=== PATIENT | female | born 1950 | race Two or more races ===

== ENCOUNTER 2016-08-31 11:39 | Emergency (ER) | payer MEDICAID ==
[~2016-08-31] VITALS: Ht 162.6 cm; Wt 59.9 kg
[~2016-08-31 11:39] MED LIST: ACETAMINOPHEN-1 EAC1 ORAL; PAXIL10 MG ORAL
[2016-08-31 12:30] VITALS: BP 158/79
[2016-08-31] MEDS ORDERED: Tubing IV Cassette IV ONE (12:30)
[2016-08-31 13:14] LABS: ALANINE AMINOTRANSFERASE 16 U/L (3-33); ALBUMIN/GLOBULIN RATIO 1.5 (1.0-2.7); ANION GAP 14 (5-15); ASPARTATE AMINO TRANSFERASE 20 U/L (5-40); BASOPHILS % (AUTO) 1.2 % (0.0-2.0); CALCIUM 10.1 mg/dL (8.6-10.2); CARBON DIOXIDE 29 mEQ/L (20-30); CHLORIDE 94 mEQ/L (98-107); CREATININE 0.8 mg/dL (0.5-0.9); EOSINOPHILS % (AUTO) 0.2 % (0.0-3.0); GLOMERULAR FILTRATION RATE > 60 mL/min (>60); HEMOLYSIS 5; LIPASE 16 U/L (< 60); LYMPHOCYTES % (AUTO) 16.8 % (20.0-45.0); MEAN CORPUSCULAR HEMOGLOBIN 33.3 PG (27.0-31.0); MEAN CORPUSCULAR HGB CONC 35.6 G/DL (32.0-36.0); MEAN CORPUSCULAR VOLUME 93 FL (80-99); MONOCYTES % (AUTO) 7.9 % (1.0-10.0); NEUTROPHILS % (AUTO) 73.9 % (45.0-75.0); PLATELET COUNT 230 K/UL (150-450); POTASSIUM 3.8 mEQ/L (3.4-4.9); RED BLOOD COUNT 3.73 M/UL (4.20-5.40); RED CELL DISTRIBUTION WIDTH 11.5 % (11.6-14.8); SODIUM 137 mEQ/L (135-145); TOTAL PROTEIN 7.4 g/dL (6.6-8.7); WHITE BLOOD COUNT 5.2 K/UL (4.8-10.8)
[2016-08-31 13:33] LABS: CKMB < 1.5 ng/mL (< 3.8)
[2016-08-31 14:00] VITALS: BP 149/79
--- NOTE | 2016-08-31 14:33 | Emergency Room Report ---
History of Present Illness General Chief Complaint: Dizziness Source: Patient Present Illness HPI Patient present with complaints of lightheadedness dizziness Patient is on chemotherapy and receiving radiation For breast cancer Her left breast was removed several years ago the right breast was removed last year After receiving radiation throughout the week this week Patient had complained of symptoms of lightheadedness and dizziness Patient also had complains of tingling and numbness in both of her hands after being seen by her Hemoccult just and primary physician was sent to the ER for further eval At this time patient had some increased nausea denies any vomiting or fevers Denies any focal weakness Allergies: Coded Allergies: No Known Allergies (Unverified , 05/05/15) Patient History Past Medical History: see triage record Pertinent Family History: none Reviewed Nursing Documentation: PMH: Agreed, PSxH: Agreed Nursing Documentation-PMH Past Medical History: No History, Except For Hx Hypertension: Yes Hx Cancer: Yes - bilateral CA and mastectomy with lymph nodes removal Review of Systems All Other Systems: negative except mentioned in HPI Physical Exam Vital Signs Date Time Temp Pulse Resp B/P Pulse Ox O2 Delivery O2 Flow Rate FiO2 08/31/16 11:45 98.8 81 14 157/90 98 Room Air Sp02 EP Interpretation: reviewed, normal General Appearance: no apparent distress Head: normocephalic, atraumatic Eyes: bilateral eye EOMI, bilateral eye PERRL ENT: hearing grossly normal, normal pharynx, TMs + canals normal, uvula midline Neck: full range of motion, supple, no meningismus, no bony tend Respiratory: lungs clear, normal breath sounds, no rhonchi, no respiratory distress, no retraction, no accessory muscle use Cardiovascular #1: normal peripheral pulses, regular rate, rhythm, no edema, no gallop, no JVD, no murmur Gastrointestinal: normal bowel sounds, non tender, soft, no mass, no organomegaly, non-distended, no guarding, no hernia, no pulsatile mass, no rebound Genitourinary: no CVA tenderness Musculoskeletal: normal inspection Neurologic: oriented x3, responsive, online content editor III-XII nml as tested, motor strength/ tone normal, sensory intact Psychiatric: mood/affect normal Skin: other - Bilateral mastectomies, right side Port-A-Cath Lymphatic: normal inspection, no adenopathy Medical Decision Making Diagnostic Impression: Primary Impression: Dizziness Additional Impressions: Weakness Radiation adverse effect ER Course Multiple differentials are considered including but not limited to Metastatic disease, cardiovascular pathology, infectious pathology Patient's blood work is at baseline levels CAT scan of the head did not show any obvious acute disease In discussion with the patient CAT scan is suboptimal for this type of etiology and differential That the patient requires MRI an inpatient care Secondary to HMO purposes patient was set for transfer and further followup inpatient [facility], Labs Test 08/31/16 12:20 White Blood Count 5.2 K/UL (4.8-10.8) Red Blood Count 3.73 M/UL (4.20-5.40) Hemoglobin 12.4 G/DL (12.0-16.0) Hematocrit 34.8 % (37.0-47.0) Mean Corpuscular Volume 93 FL (80-99) Mean Corpuscular Hemoglobin 33.3 PG (27.0-31.0) Mean Corpuscular Hemoglobin Concent 35.6 G/DL (32.0-36.0) Red Cell Distribution Width 11.5 % (11.6-14.8) Platelet Count 230 K/UL (150-450) Mean Platelet Volume 7.0 FL (6.5-10.1) Neutrophils (%) (Auto) 73.9 % (45.0-75.0) Lymphocytes (%) (Auto) 16.8 % (20.0-45.0) Monocytes (%) (Auto) 7.9 % (1.0-10.0) Eosinophils (%) (Auto) 0.2 % (0.0-3.0) Basophils (%) (Auto) 1.2 % (0.0-2.0) Sodium Level 137 mEQ/L (135-145) Potassium Level 3.8 mEQ/L (3.4-4.9) Chloride Level 94 mEQ/L (98-107) Carbon Dioxide Level 29 mEQ/L (20-30) Anion Gap 14 (5-15) Blood Urea Nitrogen 14 mg/dL (7-23) Creatinine 0.8 mg/dL (0.5-0.9) Estimat Glomerular Filtration Rate > 60 mL/min (>60) Glucose Level 107 mg/dL (74-106) Calcium Level 10.1 mg/dL (8.6-10.2) Total Bilirubin 0.4 mg/dL (0.0-1.2) Aspartate Amino Transf (AST/SGOT) 20 U/L (5-40) Alanine Aminotransferase (ALT/SGPT) 16 U/L (3-33) Alkaline Phosphatase 74 U/L (35-104) Total Creatine Kinase 39 U/L (26-140) Creatine Kinase MB < 1.5 ng/mL (< 3.8) Creatine Kinase MB Relative Index Total Protein 7.4 g/dL (6.6-8.7) Albumin 4.5 g/dL (3.5-5.2) Globulin 2.9 g/dL Albumin/Globulin Ratio 1.5 (1.0-2.7) Lipase 16 U/L (< 60) Rhythm Strip Diag. Results EP Interpretation: yes Rate: 67 Rhythm: NSR, no PVC's, no ectopy CT/MRI/US Diagnostic Results CT/MRI/US Diagnostic Results : Impression CT head no acute disease Last Vital Signs Date Time Temp Pulse Resp B/P Pulse Ox O2 Delivery O2 Flow Rate FiO2 08/31/16 14:00 74 18 149/79 97 Room Air 08/31/16 11:45 98.8 Status: improved Disposition: XFER SHT-TRM HOSP Condition: Improved Referrals: NON PHYSICIAN (PCP) KRISSY BASHIR D.O. Aug 31, 2016 14:33
--- NOTE | 2016-08-31 14:43 | Diagnostic Imaging Report ---
Indication: Attain Technique: Continuous helical CT scanning of the head was performed without intravenous contrast material. Axial and coronal 5 mm sections were generated. Radiation dose was minimized using automated exposure control Dose: Total Dose Length Product - DLP [address] Dose Index - CTDIvol(s) 70.38 mGy. Comparison: None Findings: The ventricular system is normal in size and configuration. There is no shift of midline structures. No abnormal extra-axial fluid collections are noted. There is no evidence of intracerebral bleeding. No other abnormal high or low density areas are noted within the brain. There is a 9 mm CSF attenuation round focus in the inferior right basal ganglia region lateral to the hippocampus the calvarium is intact. Normal holley-white differentiation. No significant extracranial soft tissue abnormality. Visualized orbits and sinuses are unremarkable Impression: 9 mm cystic focus in the right inferior basal ganglia region. Differential considerations include a lacunar infarct, prominent perivascular space, cystic inflammatory lesion such as cysticercosis, much less likely cystic neoplasm. Recommend comparison with prior studies of the available, consider contrast MRI for further evaluation Negative for acute intracranial bleed or mass effect Findings previously discussed by phone with Dr. Harry and Dr. Peña The CT scanner at [facility] is accredited by the [employer] and the scans are performed using protocols designed to limit radiation exposure to as low as reasonably achievable to attain images of sufficient resolution adequate for diagnostic evaluation.
[2016-08-31 15:03] VITALS: BP 149/79
--- NOTE | 2016-09-01 14:49 | Cardiology Report ---
APPROVED REPORT EKG Measurement Heart [id number] ID [id number] Normal sinus rhythm Minimal voltage criteria for LVH, may be normal variant Borderline ECG
== END 2016-08-31 15:14 | disposition short-term general hospital (02) ==
LOC: EMR 12:10 → EDBEDREQ 12:56 → EMR 15:14
DX: R42 Dizziness and giddiness (principal); R53.1 Weakness; I10 Essential (primary) hypertension; C50.912 Malignant neoplasm of unspecified site of left female breast; C50.911 Malignant neoplasm of unspecified site of right female breast; Z90.13 Acquired absence of bilateral breasts and nipples; Z79.899 Other long term (current) drug therapy; T66.XXXA Radiation sickness, unspecified, initial encounter; R20.0 Anesthesia of skin; R20.2 Paresthesia of skin
CPT/HCPCS: 36415; 70450; 80053; 82550; 82553; 83690; 85025; 93005; 96360; 96374; 99284; J2405; J7040